=== PATIENT | male | born 1950 | race Caucasian/White ===

== ENCOUNTER → 2023-12-10 07:01 | Outpatient (REF) | payer MEDICARE, OTHER, SELFPAY ==
[2023-12-10] MEDS: LEXISCAN 0.400000000000000022 MG IV (09:13)
== END ==
LOC: RCS 07:01
PROVIDERS: ATTENDING PHYSICIAN Student in an Organized Health Care Education/Training Program; FAMILY PHYSICIAN Internal Medicine
DX: R06.09 Other forms of dyspnea (principal)
CPT/HCPCS: 78452; 93017; A9500; J2785

== ENCOUNTER → 2023-12-18 12:41 | Outpatient (REF) | payer MEDICARE, OTHER, SELFPAY | LOC: HWRCS 12:41 | PROVIDERS: ATTENDING PHYSICIAN Student in an Organized Health Care Education/Training Program | DX: R06.09 Other forms of dyspnea (principal) | CPT/HCPCS: 93306 ==